=== PATIENT | male | born 1935 | race Two or more races ===

== ENCOUNTER 2016-05-12 20:49 | Day surgery (SDC) | payer OTHER ==
[~2016-05-12] VITALS: Ht 165.1 cm; Wt 75.3 kg
[~2016-05-12 20:49] MED LIST: ADVAIR 250/501 DISK IH; DOXYCYCLINE HY100 M3 PO; METOPROLOL; PREDNISONE10 MG PO; PROVENTIL,2.5 MG/0.5 AEROSOL; SPIRIVA RESPIMAT4 GM IH; VENTOLIN HFA18 GM IH
[2016-05-12 23:12] VITALS: BP 112/68
== END 2016-05-13 00:42 | disposition home or self-care (01) ==
LOC: EME 20:49 → SDC 23:13 → EME 23:13 → AMB 23:13 → SDC 05-13 00:42
PROC: 0DC28ZZ Extirpation of Matter from Middle Esophagus, Via Natural or Artificial Opening Endoscopic (ICD-10-PCS; principal; 2016-05-12)
DX: R13.10 Dysphagia, unspecified (principal); T18.128A Food in esophagus causing other injury, initial encounter; K44.9 Diaphragmatic hernia without obstruction or gangrene; F03.90 Unspecified dementia, unspecified severity, without behavioral disturbance, psychotic disturbance, mood disturbance, and anxiety; J44.9 Chronic obstructive pulmonary disease, unspecified; I71.4 Abdominal aortic aneurysm, without rupture; Z95.828 Presence of other vascular implants and grafts; Z87.891 Personal history of nicotine dependence
CPT/HCPCS: 70360; 71020; 99281; 99284; J0330; J2405

== ENCOUNTER 2017-05-05 10:39 | Inpatient (IN) | payer OTHER ==
[~2017-05-05] VITALS: Ht 167.6 cm; Wt 81.3 kg
[~2017-05-05 10:39] MED LIST changes: +ACETAMINOPHEN325 M1 PO; +ADULT AEROSOL1 EACH MC; +AERONEB GO NEB1 EACH MC; +BISAC-EVAC10 MG PR; +BREO ELLIPTA I1 EACH IH; +CEFTIN500 MG PO; +COL-RITE250 MG PO; +DELTASONE20 M1 PO; +DONEPEZIL HCL10 MG PO; +DULOXETINE HCL60 MG PO; +DUONEB 2.5-0.5 M3 ML AEROSOL; +FLEET MINERAL133 ML PR; +INCRUSE ELLI62.5 MCG IH; +MEMANTINE HCL5 MG PO; +MILK OF MAGN PO; +MUCINEX600 MG PO; +ONE DAILY FOR1 EACH PO; +PANTOPRAZOLE SO40 MG PO; +PENNSAID2 GM TP; +PRAVACHOL40 MG PO; +PRAVASTATIN SOD20 MG PO; +PROAIR HFA8.5 GM IH; +SPIRIVA1 INHALATI IH; +TOPROL XL50 MG PO; +VITAMIN D32000 UNI1 PO
[2017-05-05 11:30] LABS: BASOPHIL (%) 0.1 % (0-1); EOSINOPHIL (%) 0 % (0-5); HEMATOCRIT 35.8 % (38.0-50.0); HEMOGLOBIN 10.9 G/DL (12.5-16.6); IMMATURE GRANULOCYTE (%) 0.6 % (0.0-0.7); LYMPHOCYTE (%) 3.4 % (15-42); LYMPHOCYTE COUNT 0.5 K/uL (1.0-2.8); MCH 24.3 PG (29.0-34.0); MCHC 30.4 G/DL (30.0-36.0); MCV 79.9 FL (86-99); MONOCYTE (%) 9.5 % (3-12); MONOCYTE COUNT 1.5 K/uL (0-0.8); NEUTROPHIL (%) 86.4 % (45-76); NEUTROPHIL COUNT 13.9 K/uL (1.8-6.4); PLATELET COUNT 212 K/uL (156-360); RBC DIS.WIDTH-CV 16.5 % (11.8-14.6); RBC DIS.WIDTH-SD 46.9 % (39-53); RED BLOOD COUNT 4.48 M/uL (4.00-5.50); WHITE BLOOD COUNT 16.1 K/uL (4.1-10.2)
[2017-05-05 11:41] LABS: ALBUMIN 3.9 g/dL (3.2-4.8)
[2017-05-05 11:42] LABS: CHLORIDE 107 mEq/L (99-109); POTASSIUM 3.8 mEq/L (3.7-5.4); SODIUM 143 mEq/L (136-147)
[2017-05-05 11:44] LABS: GLUCOSE 144 mg/dL (70-99); TOTAL PROTEIN 7.1 g/dL (6.4-8.3)
[2017-05-05 11:46] LABS: TOTAL BILIRUBIN 0.8 mg/dL (0.0-1.0)
[2017-05-05 11:47] LABS: ALKALINE PHOSPHATASE 57 IU/L (3-129)
[2017-05-05 11:48] LABS: CREATININE 1.1 mg/dL (0.6-1.3); GFR ESTIMATE (CALCULATED) > 59 mL/min/ (58.99-99999)
[2017-05-05 11:49] LABS: AST (GOT) 17 IU/L (2-34); UREA NITROGEN (BUN) 17 mg/dL (9-23)
[2017-05-05 11:50] LABS: ALT (GPT) 14 IU/L (3-49)
[2017-05-05 12:21] LABS: APPEARANCE SL.HAZY ((CLEAR)); BILIRUBIN NEGATIVE; BLOOD NEGATIVE; COLOR YELLOW ((YELLOW)); GLUCOSE (STRIP) NEGATIVE; KETONES NEGATIVE; LEUKOCYTES TRACE; NITRITE NEGATIVE; PROTEIN (STRIP) 30; SPECIFIC GRAVITY 1.018 (1.000-1.030); UROBILINOGEN 0.2 MG/DL (0.2-1.0)
[2017-05-05 12:27] LABS: BACTERIA NONE SEEN /HPF; EPITHELIAL CELLS RARE /HPF; MUCUS 4+ /LPF; RED BLOOD CELLS 0-5 /HPF (0-5); UCUL ADDED? YES
[2017-05-05] MEDS ORDERED: TYLENOL EXTRA500 MG PO (15:01)
[2017-05-05] MEDS ORDERED: INCRUSE ELLI62.5 MCG IH (15:04)
[2017-05-05] MEDS ORDERED: MYRBETRIQ25 MG PO (15:06)
[2017-05-05] MEDS ORDERED: OMEPRAZOLE40 M1 PO (15:06)
[2017-05-05] MEDS ORDERED: PERCOCET 5/31 TABLET PO (15:11)
[2017-05-05 17:55] VITALS: BP 100/53
[2017-05-05 20:51] VITALS: BP 93/51
[2017-05-06] VITALS (7 sets, daily range): BP systolic 96–158; BP diastolic 50–82
[2017-05-06 06:33] LABS: CHLORIDE 114 MEQ/L (99-109); CREATININE 0.9 MG/DL (0.6-1.3); GFR ESTIMATE (CALCULATED) > 59 mL/min/ (58.99-99999); POTASSIUM 3.9 MEQ/L (3.7-5.4); SODIUM 145 MEQ/L (136-147); UREA NITROGEN (BUN) 16 mg/dL (9-23)
[2017-05-06 06:34] LABS: GLUCOSE 93 mg/dL (70-99)
[2017-05-06 06:59] LABS: BASOPHIL (%) 0.2 % (0-1); EOSINOPHIL (%) 0.3 % (0-5); HEMATOCRIT 27.3 % (38.0-50.0); HEMOGLOBIN 8.1 G/DL (12.5-16.6); IMMATURE GRANULOCYTE (%) 0.6 % (0.0-0.7); LYMPHOCYTE (%) 12.8 % (15-42); LYMPHOCYTE COUNT 1.2 K/uL (1.0-2.8); MCH 24.2 PG (29.0-34.0); MCHC 29.7 G/DL (30.0-36.0); MCV 81.5 FL (86-99); MONOCYTE (%) 10.5 % (3-12); NEUTROPHIL (%) 75.6 % (45-76); NEUTROPHIL COUNT 7.1 K/uL (1.8-6.4); PLATELET COUNT 181 K/uL (156-360); RBC DIS.WIDTH-CV 16.9 % (11.8-14.6); RBC DIS.WIDTH-SD 49.2 % (39-53); RED BLOOD COUNT 3.35 M/uL (4.00-5.50); WHITE BLOOD COUNT 9.4 K/uL (4.1-10.2)
[2017-05-06 08:24] LABS: IMM.RETIC FRACTION 29.6 % (3-19); RETIC HGB EQUIVALENT 28.1 (28-36); RETICULOCYTE COUNT 1.3 % (0.5-1.8)
[2017-05-06 08:27] LABS: IRON 25 MCG/DL (35-150); TRANSFERRIN (TIBC) 253.4 mg/dL (215-380); TRANSFERRIN SATUR. 10 % (20-55)
[2017-05-06 08:42] LABS: FERRITIN 31 NG/ML (22-322)
[2017-05-06 09:48] LABS: FOLIC ACID (FOLATE) 20.7 NG/ML (5.0-22.0)
[2017-05-07] VITALS (9 sets, daily range): BP systolic 116–178; BP diastolic 66–82
[2017-05-07 02:03] LABS: BASOPHIL (%) 0.1 % (0-1); EOSINOPHIL (%) 0 % (0-5); HEMATOCRIT 29.3 % (38.0-50.0); HEMOGLOBIN 8.9 G/DL (12.5-16.6); IMMATURE GRANULOCYTE (%) 1.4 % (0.0-0.7); LYMPHOCYTE (%) 6.9 % (15-42); LYMPHOCYTE COUNT 0.5 K/uL (1.0-2.8); MCH 24.5 PG (29.0-34.0); MCHC 30.4 G/DL (30.0-36.0); MCV 80.7 FL (86-99); MONOCYTE COUNT 0.1 K/uL (0-0.8); NEUTROPHIL (%) 89.6 % (45-76); NEUTROPHIL COUNT 6.3 K/uL (1.8-6.4); PLATELET COUNT 201 K/uL (156-360); RBC DIS.WIDTH-SD 49.1 % (39-53); RED BLOOD COUNT 3.63 M/uL (4.00-5.50)
[2017-05-07 02:21] LABS: ALBUMIN 3.4 g/dL (3.2-4.8); CHLORIDE 111 mEq/L (99-109); SODIUM 143 mEq/L (136-147)
[2017-05-07 02:25] LABS: GLUCOSE 170 mg/dL (70-99); TOTAL PROTEIN 5.8 g/dL (6.4-8.3)
[2017-05-07 02:26] LABS: TOTAL BILIRUBIN 0.5 mg/dL (0.0-1.0)
[2017-05-07 02:27] LABS: ALKALINE PHOSPHATASE 44 IU/L (3-129); CREATININE 0.8 mg/dL (0.6-1.3); GFR ESTIMATE (CALCULATED) > 59 mL/min/ (58.99-99999)
[2017-05-07 02:28] LABS: UREA NITROGEN (BUN) 12 mg/dL (9-23)
[2017-05-07 02:29] LABS: AST (GOT) 12 IU/L (2-34)
[2017-05-07 02:30] LABS: ALT (GPT) 12 IU/L (3-49)
[2017-05-07 09:10] LABS: BASE EXCESS -3.3 mEq/L (-3 to +3); BICARBONATE 21.2 mEq/L (22-26); CARBOXY HGB 1.2 % (0-5); COMMENTS - BLOOD GASES A+C+; DEVICE NC; METHEMOGLOBIN 1.3 % (0-1.5); O2 FLOW 3 L/MIN; PCO2 35 mm Hg (35-45); PO2 82 mm Hg (80-100); SITE RR; TOTAL RESP RATE 26 resp/min; pH 7.39 (7.35-7.45)
[2017-05-08 03:01] VITALS: BP 146/72
[2017-05-08 06:38] LABS: BASOPHIL (%) 0.1 % (0-1); EOSINOPHIL (%) 0 % (0-5); HEMATOCRIT 27.8 % (38.0-50.0); HEMOGLOBIN 8.3 G/DL (12.5-16.6); IMMATURE GRANULOCYTE (%) 0.8 % (0.0-0.7); LYMPHOCYTE (%) 14.9 % (15-42); LYMPHOCYTE COUNT 1.1 K/uL (1.0-2.8); MCH 24.2 PG (29.0-34.0); MCHC 29.9 G/DL (30.0-36.0); MONOCYTE (%) 11.4 % (3-12); MONOCYTE COUNT 0.8 K/uL (0-0.8); NEUTROPHIL (%) 72.8 % (45-76); NEUTROPHIL COUNT 5.3 K/uL (1.8-6.4); PLATELET COUNT 225 K/uL (156-360); RBC DIS.WIDTH-CV 17.2 % (11.8-14.6); RBC DIS.WIDTH-SD 49.9 % (39-53); RED BLOOD COUNT 3.43 M/uL (4.00-5.50); WHITE BLOOD COUNT 7.3 K/uL (4.1-10.2)
[2017-05-08 06:59] LABS: CHLORIDE 106 MEQ/L (99-109); CREATININE 0.9 MG/DL (0.6-1.3); GFR ESTIMATE (CALCULATED) > 59 mL/min/ (58.99-99999); POTASSIUM 3.5 MEQ/L (3.7-5.4); SODIUM 146 MEQ/L (136-147); UREA NITROGEN (BUN) 14 mg/dL (9-23)
[2017-05-08 07:08] LABS: GLUCOSE 89 mg/dL (70-99)
[2017-05-08 07:15] VITALS: BP 157/74
[2017-05-08 11:00] VITALS: BP 146/70
[2017-05-08 15:00] VITALS: BP 160/85
[2017-05-08 17:16] VITALS: BP 142/70
[2017-05-08 23:49] VITALS: BP 163/69
[2017-05-09 07:00] VITALS: BP 143/66
[2017-05-09] MEDS ORDERED: PREDNISONE10 MG PO (09:35)
[2017-05-09] MEDS ORDERED: AUGMENTIN875 MG PO (09:35)
== END 2017-05-09 14:19 | DRG 871 ==
LOC: EME 10:39 → ENRESERV 12:41 → 5EAST 12:46 → EDOF 12:46 → ENRESERV 16:05 → 5EAST 17:49
PROVIDERS: Emergency Medicine; Hospitalist; Internal Medicine
DX: A41.9 Sepsis, unspecified organism (principal); J18.9 Pneumonia, unspecified organism; J96.01 Acute respiratory failure with hypoxia; N39.0 Urinary tract infection, site not specified; J44.0 Chronic obstructive pulmonary disease with (acute) lower respiratory infection; I11.0 Hypertensive heart disease with heart failure; E78.5 Hyperlipidemia, unspecified; J44.1 Chronic obstructive pulmonary disease with (acute) exacerbation; K21.9 Gastro-esophageal reflux disease without esophagitis; F03.90 Unspecified dementia, unspecified severity, without behavioral disturbance, psychotic disturbance, mood disturbance, and anxiety; Y95 Nosocomial condition; D63.8 Anemia in other chronic diseases classified elsewhere; G47.33 Obstructive sleep apnea (adult) (pediatric); Z77.090 Contact with and (suspected) exposure to asbestos; Z87.891 Personal history of nicotine dependence; Z85.46 Personal history of malignant neoplasm of prostate; Z86.79 Personal history of other diseases of the circulatory system
CPT/HCPCS: 36600; 71045; 71250; 74230; 80048; 80053; 80202; 81003; 82607; 82728; 82746; 82803; 83540; 83605; 83880; 84466; 85025; 85046; 87040; 87070; 87086; 87205; 87449; 92526 GN; 92610 GN; 92611 GN; 93005; 94640; 94640 76; 94799; 97530 GO; 97530 GP; 99202; 99281; 99285; J1650; J1756; J1940; J1956; J2543; J2920; J3370; J7030; J7050; J7512

== ENCOUNTER → 2017-07-22 | Outpatient (CLI) | payer OTHER ==
[~2017-07-22] MED LIST changes: +AUGMENTIN875 MG PO; +MYRBETRIQ25 MG PO; +OMEPRAZOLE40 M1 PO; +PERCOCET 5/31 TABLET PO; +TYLENOL EXTRA500 MG PO
== END | disposition home or self-care (01) ==
LOC: RAD 10:00
DX: R13.11 Dysphagia, oral phase (principal); Z86.79 Personal history of other diseases of the circulatory system; Z87.01 Personal history of pneumonia (recurrent); Z87.19 Personal history of other diseases of the digestive system
CPT/HCPCS: 74230; 92611 GN; G8996 GN CI; G8997 GN CI; G8998 GN CI